=== PATIENT | male | born 2000 | race Caucasian/White ===

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

== ENCOUNTER 2022-08-28 18:34 | Emergency (ER) | payer BC, SELFPAY ==
[2022-08-28] VITALS (31 sets, daily range): BP systolic 77–149; BP diastolic 47–136; PULSE 58–101; RESP 14–46; TEMP 35.8–36.8; O2SAT 97–100
--- NOTE | ~2022-08-28 | XR_ITS ---
Portable chest x-ray Comparison: None Clinical History: Chest pain Findings: Lungs are clear, without focal consolidation or pleural effusion. Cardiomediastinal silho uette is stable. Bones and soft tissues are unremarkable. Impression: Normal chest. Reviewed, dictated and finalized at location M. Impression: Normal chest.
--- NOTE | ~2022-08-28 | CT_ITS ---
Clinical Indication: Chest pain, abdominal pain CT Scan of the Chest, Abdomen, and Pelvis with Contrast: Technique: Contiguous sections were acquired throughout the chest, abdomen, and pelvis after intraven ous administration of 100 cc of Omnipaque 350. Dose reduction technique was used on this scan by antwan sargent automated exposure control and iterative reconstruction technique. The dose-length product (DL P) was 421.73 mGy-cm. Findings: There is no evidence of any significant mediastinal, hilar or axillary lymphadenopathy. No pulmonary embolus seen. No aortic aneurysm or dissection. There is pneumomediastinum, with soft tissue gas diss ecting superiorly into the neck about the thyroid gland and carotid sheath structures. There is no evidence of pleural or pericardial effusion. The lungs are clear. No pulmonary nodules or infiltrates are noted. No pneumothorax. The liver, spleen, pancreas, gallbladder, adrenals and kidneys are within normal limits. No evidence of aortic aneurysm. No lymphadenopathy. No bowel obstruction or bowel wall thickening. There is no evidence to suggest acute appendicitis. Urinary bladder is unremarkable. No pelvic mass seen. No ascites. Impression: Pneumomediastinum, as detailed above. No other significant findings. Reviewed, dictated and finalized at [facility]. Impression: Pneumomediastinum, as detailed above. No other significant findings.
--- NOTE | 2022-08-28 19:08 | ECG_ITS ---
Measurements Intervals [place] Rate: 80 P: 79 NH: 186 QRS: 75 QRSD: 98 T: 60 QT: 364 QTc: 422 Interpretive Statements SINUS RHYTHM WITH SINUS ARRHYTHMIA LEFT ATRIAL ENLARGEMENT INCOMPLETE RIGHT BUNDLE BRANCH BLOCK BORDERLINE ECG NO PREVIOUS ECG AVAILABLE FOR COMPARISON Electronically Signed On 08-29-2022 6:32:40 CDT by Pacheco Peace D.O.
[2022-08-28 19:18] LABS: Basophils Absolute Auto 0.1 K/mm3 (0.0-0.1); Basophils Percent Auto 0.5 % (0.2-1.2); Eosinophils Percent Auto 0.1 % (0-4.4); Hematocrit 48.1 % (42.0-52.0); Immature Granulocyte Absolute 0.11 K/mm3 (0.00-0.031); Immature Granulocyte Percent A 0.6 % (0-0.5); Lymphocytes Absolute Auto 2.42 K/mm3 (0.9-3.2); Lymphocytes Percent Auto 12.8 % (18.3-44.2); Mean Corpuscular HGB Conc 37.4 g/dl (32-36); Mean Corpuscular Volume 80.2 fl (80-100); Mean Platelet Volume 10.2 fl (7.4-10.4); Monocytes Absolute Auto 1.1 K/mm3 (0.1-0.6); Monocytes Percent Auto 5.8 % (2.6-8.5); Neutrophils Absolute Auto 15.2 K/mm3 (1.3-6.7); Neutrophils Percent Auto 80.2 % (45.5-73.1); Platelet Count Result 372 k/mm3 (150-375); Red Cell Distribution Width 11.5 % (11.5-14.5); White Blood Count 18.9 K/mm3 (4.5-10.0)
--- NOTE | 2022-08-28 19:23 | ED.GENADULT ---
HPI - General Adult General Chief complaint: Environmental Exposure Stated complaint: heat stroke? Time Seen by Provider: 08/28/22 19:05 History of Present Illness HPI narrative: This is a 22-year-old male with no significant past medical history, brought in by family for diffuse pain, nausea and vomiting since 1030 this morning. The patient states he has been working outside all day. He is pain began with diffuse cramping and paresthesias in the extremities, rated 7/10. Shortly after arrival, he began being complaining of chest pain rated 9/10 and described as sharp. He complains of diffuse weakness without focal deficits. Related Data Allergies Allergy/AdvReac Type Severity Reaction Status Date / Time No Known Allergies Allergy Mild Unverified 06/20/08 11:07 Review of Systems Review of Systems: CONSTITUTIONAL: Chills and sweats denies fever, CARDIOVASCULAR: Chest pain denies palpitations, or edema. RESPIRATORY: Denies cough or dyspnea. GASTROINTESTINAL: Denies abdominal pain, nausea, vomiting, or diarrhea. GENITOURINARY: Denies dysuria or hematuria. SKIN: Denies rash or itching. MUSCULOSKELETAL: Diffuse myalgias denies back pain, joint pain NEUROLOGIC: Generalized weakness denies headache, numbness, dizziness PSYCHIATRIC: Denies anxiety or depression. PMFSH Past Medical History Medical History (Updated 08/28/22 @ 22:30 by Rey Aviles MD) No significant past medical history Surgical History Surgical History (Updated 08/28/22 @ 19:29 by Rey Aviles MD) No significant past surgical history Social History Social History (Updated 08/28/22 @ 19:29 by Rey Aviles MD) Smoking status: Current every day smoker Alcohol intake: never Substance use: current Substance use type: marijuana Exam Narrative: GENERAL: Well-developed, well-nourished, in moderate distress due to pain HEAD: Normocephalic, atraumatic. EYES: PERRLA and EOMI. ENT: Nares clear, no rhinorrhea or epistaxis. Mucous membranes dry.. Oropharynx without tonsillar hypertrophy exudate or other lesions. NECK: Supple. CHEST: Clear to auscultation. No respiratory distress. No wheezes rales or rhonchi HEART: Tachycardic with regular rhythm. No murmur heard. Normal peripheral pulses. ABDOMEN: Soft, nontender, nondistended, normal active bowel sounds. EXTREMITIES: Normal range of motion. No edema. SKIN: Warm, dry, no rash. NEURO: No focal deficits. Alert and oriented x3. Strength 5/5 in all extremities, sensation intact bilaterally, no noted ataxia PSYCH: Normal mood and affect. Course Course Emergency Course: 19:55 - WBC elevated to 18. Hemoglobin 18 hematocrit 48, platelet count 372. Chemistries demonstrate a creatinine of 2, BUN of 16, bicarb of 18 and a calculated anion gap of 25. The patient's serum glucose is 181. Troponin is negative and CK is 201. It is unclear as to why the patient has an open anion gap. We will add lactic acid, Tylenol, salicylates and evaluate for serum ketones. This may be indicative of diabetic ketoacidosis versus sepsis versus lactic acidosis. Will obtain CT chest abdomen pelvis and continue with IV fluids. 21:48 - CT chest abdomen pelvis demonstrates pneumomediastinum without changes concerning for aortic dissection or other acute cardiothoracic abnormalities. I discussed the patient with [facility] hospitalist, Dr. Boyer who requests esophagram. I discussed this with radiology department, we are unable to perform this test at this time. 22:00 - I received notification from [facility] transfer system, the patient was accepted by Dr. Boyer to [facility]. 05:30 - EMS at bedside to admit the patient. Vital Signs Vital signs: Vital Signs Temperature 96.5 F L 08/28/22 18:43 Pulse Rate 97 08/28/22 18:43 Blood Pressure 77/47 L 08/28/22 18:43 Pulse Oximetry 99 08/28/22 18:43 Oxygen Delivery Room Air 08/28/22 18:43 Temperature 98.2 F 08/28/22 21:20 Pulse Rate 83 08/29/22 04:
[2022-08-28 19:43] LABS: Troponin I < 0.012 ng/mL (0.000-0.034)
[2022-08-28 19:49] LABS: Albumin Level 5.9 g/dL (3.5-5.1); Alkaline Phosphatase 112 U/L (38-126); Anion Gap 25 mmol/L (8-16); Aspartate Amino Transferase 50 U/L (17-59); Bilirubin,Total 1.2 mg/dL (0.2-1.3); Blood Urea Nitrogen 16 mg/dL (9-20); Calcium 10.9 mg/dL (8.4-10.2); Carbon Dioxide 18 mmol/L (22-30); Chloride 94 mmol/L (98-107); Creatine Kinase 201 U/L (55-170); Estimated CRCL calculation 55 ml/min; Estimated Glomerular Filt Rate 43; Glucose 181 mg/dL (65-110); Lipase 45 U/L (23-300); Magnesium 1.7 mg/dL (1.6-2.3); Potassium 3.5 mmol/L (3.4-5.0); Sodium 137 mmol/L (137-145)
[2022-08-28 19:59] LABS: Alanine Aminotransferase 63 U/L (6-50)
[2022-08-28] MEDS: SODIUM CHLORIDE 0.9% IV 2,000 ML 999 ML IV CONT (20:04)
[2022-08-28] MEDS: ONDANSETRON INJ 4 MG/2 ML VIAL IV PUSH (20:05)
[2022-08-28] MEDS: MORPHINE SULFATE (*CRX) 4 MG/ML INJ IV PUSH (20:05)
[2022-08-28] MEDS: ASPIRIN 81 MG CHEWABLE TABLET 324 MG PO (20:07)
[2022-08-28 20:35] LABS: Fractional Inspired Oxygen 21 %; HCO3 VBG 18.4 mEq/l (24.0-30.0); PO2 VBG 40.9 mmHg (35.0-45.0)
[2022-08-28] MEDS: PROCHLORPERAZINE EDISYLATE 10 MG/2 ML VIAL IV PUSH (20:36)
[2022-08-28 20:43] LABS: Acetaminophen < 10 ug/mL (10-30); Salicylate < 1.0 mg/dL (2-20)
[2022-08-28 20:45] LABS: INR 1.2; Partial Thromboplastin Time 26.1 SECONDS (22.3-36.8); Prothrombin Time 15.5 Seconds (11.1-14.7)
[2022-08-28 20:46] LABS: Lactic Acid Reflex 6.3 mmol/L (0.7-2.0)
[2022-08-28 20:48] LABS: Beta-Hydroxybutyrate/Acetoacetate 0.24 mmol/L (0.02-0.27)
[2022-08-28] MEDS: PIPERACILLN/TAZ 3.375GM/NS50ML 3.375 GM/50 ML BAG IVPB (21:01)
[2022-08-28] MEDS: SODIUM CHLORIDE 0.9% IV 1,000 ML 999 ML IV CONT (21:30)
--- NOTE | 2022-08-28 22:05 | PC.NURSE ---
[facility] transfer center called for triage questions. Dr. Jason accepted patient and they will call back with a bed assignment.
[2022-08-28 22:17] LABS: Troponin I < 0.012 ng/mL (0.000-0.034)
[2022-08-28 22:23] LABS: pH VBG 7.426 (7.300-7.400)
[2022-08-28 22:24] LABS: PCO2 VBG 28.6 mmHg (42.0-48.0)
[2022-08-28 22:37] LABS: Appearance Urine Clear (Clear); Bacteria Urine None Seen /hpf; Bilirubin Urine Negative (Negative); Blood Urine Negative (Negative); Color Urine Yellow (Yellow); Glucose Urine UA Negative (Negative); Ketones Urine Trace mg/dL (Negative); Leukocyte Esterase Ur Negative LEU/UL (Negative); Need Manual Microscopic Reviewed; Nitrate Urine Negative (Negative); Protein Urine 2+ mg/dL (Negative); Squamous Epithelial Cell Urine Occasional /hpf (Few); WBC Urine 0-5 /hpf; pH Urine 5.5 (5.0-9.0)
[2022-08-28 22:42] LABS: Add Urine Microscopic? YES; Specific Grav Ur 1.083 (1.001-1.035)
[2022-08-28 23:32] LABS: Reflex Lactic Acid Yes or No Add Lactic
[2022-08-29] VITALS (13 sets, daily range): BP systolic 121–128; BP diastolic 60–64; PULSE 54–83; RESP 13–19; O2SAT 97–100
[2022-08-29 00:03] LABS: Lactic Acid 2.8 mmol/L (0.7-2.0)
[2022-08-29 02:35] LABS: Troponin I < 0.012 ng/mL (0.000-0.034)
[2022-08-30 10:41] LABS: Device ROOM AIR
== END 2022-08-29 05:48 | disposition short-term general hospital (02) ==
PROVIDERS: Emergency Provider Preventive Medicine Aerospace Medicine; PCP Family Medicine
DX: N17.9 Acute kidney failure, unspecified (principal); J98.2 Interstitial emphysema; E87.20 Acidosis, unspecified; M79.10 Myalgia, unspecified site; R07.9 Chest pain, unspecified; F17.200 Nicotine dependence, unspecified, uncomplicated; R94.31 Abnormal electrocardiogram [ECG] [EKG]
CPT/HCPCS: 36415; 71045; 71275; 74174; 80053; 80307; 81001; 82010; 82550; 82803; 83605; 83690; 83735; 84484; 85025; 85610; 85730; 87040; 93005; 96365; 96366; 96367; 96375; 99285; A9270; J0780; J2270; J2405; J2543; J3370; J7030; Q9967

== ENCOUNTER 2023-02-02 16:56 | Outpatient (CLI) | payer BC, SELFPAY ==
--- NOTE | ~2023-02-02 | XR_ITS ---
EXAMINATION: XR sacroiliac joints min 3V DATE: 02/02/2023 17:19 INDICATION: Sacrococcygeal disorder not elsewhere specified. TECHNIQUE: AP and left and right oblique views of the bilateral sacroiliac joints were obtained. COMPARISON: CT dated 08/28/2022 FINDINGS: Bone alignment is normal. No fractures. Bilateral sacroiliac joints are normal. No subjective or scle rosis or erosions to suggest inflammatory sacroiliitis. There is bilateral decreased femoral head/nec k offset along with mild osteoarthritis, both slightly more prominent on the left. There is also a le ft-sided anterosuperior os acetabulum. 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 IMPRESSION: 1. Normal bilateral sacroiliac joints. 2. 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 Correlate clinically for signs /symptoms of impingement. Reviewed, dictated and finalized at location A. IFIED [employer]ORTHAND REPORTER IMPRESSION: 1. Normal bilateral sacroiliac joints. 2. Atypical for age mild osteoarthritis of the bilateral hips, left greater angelica n right which along with the presence of bilateral decreased anterosuperior fem oral head/neck offset and a left os acetabulum suggests the likelihood of cam-t ype femoral acetabular impingement. Correlate clinically for signs/symptoms of impingement.
--- NOTE | ~2023-02-02 | XR_ITS ---
XR lumbar spine 2-3V 02/02/2023 17:19 Indication: Low back pain Procedure: 3 views lumbar spine Comparison: 10/22/2019 Findings: Mild disc narrowing at L5-S1. No fracture, subluxation or dislocation. No evidence for spon dylolisthesis. Pedicles intact. Sacral foramen are symmetric. Impression: 1: Mild lumbar spondylosis. Reviewed, dictated and finalized at location A. SCREENER Impression: 1: Mild lumbar spondylosis.
== END 2023-02-02 16:57 | disposition home or self-care (01) ==
PROVIDERS: PCP Family Medicine; Visit Provider Physician Assistant
DX: M53.3 Sacrococcygeal disorders, not elsewhere classified (principal); M54.50 Low back pain, unspecified; M16.0 Bilateral primary osteoarthritis of hip; M43.06 Spondylolysis, lumbar region
CPT/HCPCS: 72100; 72202